=== PATIENT | female | born 1960 | race Caucasian/White ===

== ENCOUNTER 2017-04-20 08:45 | Day surgery (SDC) | payer OTHER ==
[2017-04-20] VITALS (10 sets, daily range): BP systolic 96–147; BP diastolic 53–74; PULSE 61–102; TEMP 97.6–98.9
[~2017-04-20] VITALS: Ht 154.9 cm; Wt 50.5 kg
[2017-04-20] MEDS ORDERED: CEPHALEXIN500 M1 PO (09:36)
[2017-04-20] MEDS ORDERED: NORCO 325 MG-7.1 TAB PO (09:39)
[2017-04-20] MEDS ORDERED: ROXICODONE 55 MG/TAB PO (09:40)
[2017-04-21 01:28] VITALS: BP 139/73; PULSE 78; TEMP 98.4
[2017-04-21 04:05] VITALS: BP 124/68; PULSE 79; TEMP 97.7
[2017-04-21 09:15] VITALS: BP 128/56; PULSE 78; TEMP 97.7
== END 2017-04-21 13:15 | disposition home or self-care (01) ==
LOC: SDCO 08:45 → SURG 15:15 → SDCO 16:00
DX: S82.22 Transverse fracture of shaft of tibia (principal); V49.9XXA Car occupant (driver) (passenger) injured in unspecified traffic accident, initial encounter; F17.210 Nicotine dependence, cigarettes, uncomplicated; Z90.710 Acquired absence of both cervix and uterus; Z90.49 Acquired absence of other specified parts of digestive tract
CPT/HCPCS: OP; A9284; C1713; J0690; J1100; J1170; J1885; J2405; J2704; J2765; J3010; J7120

== ENCOUNTER 2023-04-14 10:33 | Day surgery (SDC) | payer BC ==
[~2023-04-14] VITALS: Ht 154.9 cm; Wt 50.4 kg
[~2023-04-14 10:33] MED LIST: CEPHALEXIN500 M1 PO; NORCO 325 MG-7.1 TAB PO; ROXICODONE 55 MG/TAB PO
[2023-04-14 11:12] VITALS: BP 131/69; PULSE 68; TEMP 97.4
[2023-04-14] MEDS ORDERED: PROAIR HFA0.09 MG/AC IH (11:27)
[2023-04-14] MEDS ORDERED: QVAR REDIHALE10.6 GM IH (11:29)
[2023-04-14] MEDS ORDERED: ALBUTEROL0.83 MG/ML IH (11:29)
[2023-04-14] MEDS ORDERED: IBU600 MG PO (11:32)
[2023-04-14] MEDS ORDERED: PERCOCET 325 MG1 TA3 PO (11:35)
[2023-04-14 14:35] VITALS: BP 132/63; PULSE 73; TEMP 97.1
[2023-04-14] MEDS ORDERED: MOTRIN 600600 MG/TAB PO (14:37)
[2023-04-14] MEDS ORDERED: PERCOCET 325 MG1 TA2 PO (14:37)
[2023-04-14 14:50] VITALS: BP 128/74; PULSE 63
--- NOTE | 2023-04-14 15:15 | NUR ---
1435-PT TO BAY 6 PER CART FROM OR. REPORT RECEIVED. VS OBTAINED. CALL LIGHT WITHIN REACH. BED IN LOW POSITION AND SIDE RAILS UP X2. PT DENIES ANY NEEDS. 1440-PT TOLERATING WATER. DENIES WANTING ANYTHING TO EAT. 1455-IV DC'D AT THIS TIME. 1500-DISCHARGE EDUCATION COMPLETED WITH PT AND HER DAUGHTER. VERBALIZED UNDERSTANDING OF HOME AND FOLLOW UP CARE. ALL QUESTIONS ANSWERED. DISCHARGE PAPERWORK GIVEN TO PT. 1505-PT ABLE TO DRESS SELF WITHOUT ASSISTANCE. 1515-PT OFF UNIT PER WHEELCHAIR. PT DISCHARGED TO HOME WITH DAUGHTER PER PERSONAL VEHICLE.
== END 2023-04-14 15:15 | disposition home or self-care (01) ==
LOC: SDCO 10:33
DX: C34.12 Malignant neoplasm of upper lobe, left bronchus or lung (principal); F17.210 Nicotine dependence, cigarettes, uncomplicated
CPT/HCPCS: C1788; J0690; J1644; J2405; J2704; J3010; J7120